=== PATIENT | female | born 2000 | race Caucasian/White ===

== ENCOUNTER 2021-07-14 13:10 | Emergency (ER) | payer OTHER ==
[~2021-07-14] VITALS: Ht 149.9 cm; Wt 45.5 kg
[2021-07-14 15:40] VITALS: BP 125/74
== END 2021-07-14 15:41 | disposition home or self-care (01) ==
LOC: EMS 13:26
DX: Z11.1 Encounter for screening for respiratory tuberculosis (principal)
CPT/HCPCS: 71045; 99283